=== PATIENT | female | born 1965 | race Caucasian/White ===

== ENCOUNTER → 2017-08-29 | Day surgery (SDC) | payer BC ==
[~2017-08-29] MED LIST: AMBIEN10 MG PO; CRESTOR10 MG; FENTANYL CITRATE/PF 100MCG/2 ML INJ ONE; HYOSCYAMINE SULFATE 0.5 MG/ML AMP ONE; MIDAZOLAM HCL 2 MG/2 ML VIAL ONE; NULEV0.125 MG; PANTOPRAZOLE SO40 MG PO; PENTASA500 MG PO; PROPOFOL IV EMULSION 10 MG/ML 50 ML VIAL ONE; SUCRALFATE1 GM PO; TRULANCE
--- NOTE | 2017-08-29 19:55 | Operative Report ---
DATE OF PROCEDURE: August 29, 2017 REFERRING PHYSICIAN: Dr. Theo Leblanc. PROCEDURE PERFORMED: 1. Esophagogastroduodenoscopy with biopsies. 2. Colonoscopy with polypectomy. INDICATIONS FOR ESOPHAGOGASTRODUODENOSCOPY: Dysphagia to solids, history of heartburn indigestion. INDICATIONS FOR COLONOSCOPY: Colorectal cancer screening, personal history of colon polyps. MEDICATION: Patient was done under MAC. Please see anesthesiologist's note. PROCEDURE: With the patient in the left lateral decubitus position, the flexible fiberoptic Olympus gastroscope was introduced into the esophagus under direct visualization without any difficulty. There were some subepithelial granular deposits noted in the esophagus, and biopsies were obtained. A mild stricture was noted at the GE junction, and that was dilated to size 52-Nepali Banda. The scope was then advanced with ease into the stomach, and the mucosa overlying the antrum revealed some patchy areas of erythema. There was an approximately 4 mm submucosal nodule proximal antrum, greater curvature, and that was biopsied. Several hyperplastic-appearing polyps were noted in the body. Some were partially excised with the cold biopsy forceps. Pylorus appeared to be of normal contour and shape, was intubated with ease, and the scope was advanced all the way to the 2nd portion of the duodenum. The scope was then withdrawn slowly, and biopsies were obtained from the proximal 2nd portion to rule out sprue. Mucosa overlying the duodenal bulb appeared to be within normal limits. The scope was then withdrawn back into the stomach and retroflexed, and the mucosa overlying the fundus and the cardia appeared to be within normal limits. The scope was then straightened out. The stomach was decompressed. The scope was subsequently withdrawn. Patient tolerated the procedure well. IMPRESSION: 1. Esophageal stricture at gastroesophageal junction dilated to size 52-Nepali Banda. 2. Gastritis, mild. 3. Gastric polyps, body, multiple, some partially excised with the cold biopsy forceps. 4. Submucosal nodule antrum biopsied. 5. Rule out sprue. PLAN: Follow up histology. Continue Protonix 40 mg 1 p.o. a.c. b.i.d. Patient was then turned around and after adequate lubrication of the anal canal, a flexible fiberoptic Olympus colonoscope was inserted into the rectum with ease and advanced all the way to the cecum. It was then withdrawn slowly. Mucosa overlying the cecum, ascending colon, transverse colon and descending colon appeared to be within normal limits. Two minute polyps were hot biopsied from the sigmoid colon. The rectum appeared to be within normal limits. The scope was then retroflexed into the distal rectum and small internal hemorrhoids were noted, none of which was actively bleeding. The scope was then straightened out. It was subsequently withdrawn. Patient tolerated procedure well. IMPRESSION: 1. Sigmoid colon polyps x2 hot biopsied. 2. Internal hemorrhoids, none actively bleeding. PLAN: Follow up histology. Initiate high-fiber low-fat diet. Initiate high-fiber supplement. Start VSL#3 DS 1 p.o. b.i.d. Patient will need a followup colonoscopy in 3 to 5 years. Job#: [id number] EV cc:THEO LEBLANC DO
--- OUTSIDE RECORDS SUMMARY | 2017-08-31 09:58 | XMS REPORT | Clinical Summary ---
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 Name Role Phone January Chacon MD PCP Allergies Not on File Current Medications Not on file Active Problems Not on file Encounters Date Type Specialty Care Team Description 10/17/2016 [facility] Nkechi La MD Encounter for mammogram Encounter to establish baseline mammogram 10/15/2016 Transcribe Access Nkechi La MD Encounter for mammogram Orders to establish baseline mammogram (Primary Dx) after 08/30/2016 Social History Tobacco Use Types Packs/Day Years Used Date Never Assessed Sex Assigned at Date Recorded Not on file Last Filed Vital Signs Not on file Plan of Treatment Health Maintenance Due Date Last Done Comments PAP SMEAR 1984 COLONOSCOPY 2013 INFLUENZA VACCINE 12/30/2016 MAMMOGRAM 10/17/2018 10/17/2016 Results * Mammo Breast Screen Tomosynthesis Bilateral (10/17/2016 8:50 AM) Specimen Performing Laboratory [facility] [address] [place] [address] Narrative PROCEDURE: MAMMO BREAST SCREEN TOMOSYNTHESIS BILATERAL Computer-assisted detection was utilized inthe interpretation of this exam. COMPARISON: [facility] are not available at this time TECHNIQUE: Bilateral digital screening mammogram was performed and interpreted using computer-assisted detection. HISTORY: Asymptomatic routine screening. Family History: No known family history. FINDINGS: BreastComposition: The breasts are heterogeneously dense which may obscure small masses (category C). No suspicious mass , architectural distortion or suspicious microcalcifications are present. IMPRESSION: No mammographic evidence of malignancy. Birads category 1.Negative. RECOMMENDATIONS:If the clinical breast examination is unchanged and normal , annual screening mammography is recommended per ACS and ACR guidelines. NOTE: This facility is a designated [facility] ( [facility]) , meeting standards of accreditation in all modalities of breast imaging. This facility is accredited by [employer] for Mammography. A negative x-ray report should not delay biopsy if a dominant or clinically suspicious mass is present. Not all cancers are identified by x-ray. [id number] after 08/30/2016 Insurance Payer Benefit Subscriber ID Type Phone Address Plan / Group BCBS BCBS xxxxxxxxxxxx PPO CHOICE PPO/SABINO [id number]
== END | disposition home or self-care (01) ==
LOC: OR 09:20
PROVIDERS: ATTEND Internal Medicine Gastroenterology
DX: Z12.11 Encounter for screening for malignant neoplasm of colon (principal); K63.5 Polyp of colon; K31.7 Polyp of stomach and duodenum; K22.2 Esophageal obstruction; K29.70 Gastritis, unspecified, without bleeding; K50.90 Crohn's disease, unspecified, without complications; K31.89 Other diseases of stomach and duodenum; K21.9 Gastro-esophageal reflux disease without esophagitis; K20.9 Esophagitis, unspecified; K22.8 Other specified diseases of esophagus; K59.00 Constipation, unspecified; K64.8 Other hemorrhoids; R00.1 Bradycardia, unspecified; Z01.810 Encounter for preprocedural cardiovascular examination
CPT/HCPCS: 43239; 43450; 45384; 93005; J1980; J2250

== ENCOUNTER → 2021-03-02 | Day surgery (SDC) | payer BC ==
[~2021-03-02] MED LIST changes: +DIOVAN80 MG PO; -FENTANYL CITRATE/PF 100MCG/2 ML INJ ONE; -HYOSCYAMINE SULFATE 0.5 MG/ML AMP ONE; -MIDAZOLAM HCL 2 MG/2 ML VIAL ONE; -PROPOFOL IV EMULSION 10 MG/ML 50 ML VIAL ONE
[2021-03-02 10:45] VITALS: BP 123/70
== END | disposition home or self-care (01) ==
LOC: OR 08:29
PROVIDERS: ATTEND Internal Medicine Gastroenterology
DX: K22.9 Disease of esophagus, unspecified (principal); Z86.010 Personal history of colon polyps; K31.7 Polyp of stomach and duodenum; K29.70 Gastritis, unspecified, without bleeding; K63.89 Other specified diseases of intestine; K21.9 Gastro-esophageal reflux disease without esophagitis; K50.90 Crohn's disease, unspecified, without complications; K57.30 Diverticulosis of large intestine without perforation or abscess without bleeding; K64.8 Other hemorrhoids; I10 Essential (primary) hypertension; R00.1 Bradycardia, unspecified; Z01.810 Encounter for preprocedural cardiovascular examination; Z01.812 Encounter for preprocedural laboratory examination; Z20.822 Contact with and (suspected) exposure to COVID-19
CPT/HCPCS: 43239; 43251; 43450; 45380; 93005; U0002